=== PATIENT | female | born 1990 ===

== ENCOUNTER 2017-10-20 17:09 | Observation (INO) ==
[2017-10-20] MEDS ORDERED: GLUCAGON 1 MG VIAL IM PRN (17:54)
[2017-10-20] MEDS ORDERED: ACETAMINOPHEN 325 MG TABLET PO PRN (17:54)
[2017-10-20] MEDS ORDERED: ONDANSETRON 4 MG/2 ML VIAL IV PRN (17:54)
[2017-10-20] MEDS ORDERED: DEXTROSE 50% 25 GM/50 ML VIAL IV PRN (17:54)
[2017-10-20] MEDS ORDERED: INFLUENZA VIRUS VACCINE 0.5 ML SYRINGE IM ONE (18:11)
[2017-10-20] MEDS: LACTATED RINGERS 1,000 ML IV SCH (18:27)
[2017-10-20] MEDS ORDERED: cefOXitin 2,000 MG in SYRINGE 1 EACH IV SCH (18:30)
[2017-10-20] MEDS: INSULIN REGULAR 100 UNIT/ML SUBCUT SCH (21:37)
[2017-10-21] MEDS: LACTATED RINGERS 1,000 ML IV SCH ×2 (03:06→20:36)
[2017-10-21 06:00] LABS: Basophils % 0.3 % (0.0-0.8); Eosinophils # 0.3 10*3/uL (0.0-0.87); Eosinophils % 3.5 % (0.00-10.9); Hemoglobin 12.7 GM/DL (12.0-16.0); Immature Granulocytes % 0.1 %; Immature Granulocytes Absolute 0.01 #; Lymphocytes # 1.8 10*3/uL (1.4-4.0); Lymphocytes % 23.9 % (21.3-54.2); Mean Corpuscular HGB Conc 34.3 GM/DL (32-36); Mean Corpuscular Hemoglobin 29 PG (27-34); Mean Corpuscular Volume 84.7 FL (87-102); Mean Platelet Volume 10.2 FL (9.6-12.0); Monocytes # 0.8 10*3/uL (0.11-0.8); Neutrophils # 4.5 10*3/uL (1.4-7.4); Neutrophils % 61.2 % (38.7-73.9); Platelet Count 225 T/CUMM (130-400); Red Blood Count 4.37 MC/CUMM (3.8-5.5); Red Cell Distribution Width 12.6 % (9.3-17.3); White Blood Count 7.4 T/CUMM (4-12)
[2017-10-21 06:27] LABS: Bilirubin,Total 1.4 MG/DL (0.2-1.0); Calcium 8.1 MG/DL (8.5-10.1); Potassium 3.6 MMOL/L (3.5-5.1); Total Protein 5.9 G/DL (6.4-8.3)
[2017-10-21] MEDS ORDERED: LACTATED RINGERS 1,000 ML IV SCH ×2 (08:30→14:30)
[2017-10-21] MEDS ORDERED: PANTOPRAZOLE 40 MG TABLET PO SCH (09:00)
[2017-10-21] MEDS: INSULIN REGULAR 100 UNIT/ML SUBCUT SCH ×4 (11:03→20:38)
[2017-10-21] MEDS ORDERED: TISSUE ADHESIVE 1 EACH APPLICATOR TOP ONE (11:36)
[2017-10-21] MEDS ORDERED: LIDOCAINE 1%/EPI INJ 20 ML VIAL ONE (11:36)
[2017-10-21] MEDS ORDERED: SUGAMMADEX 200 MG/2 ML VIAL IV ONE (14:08)
[2017-10-21] MEDS: HYDROmorphone 2 MG/1 ML VIAL IV PRN ×3 (14:15→14:30)
[2017-10-21] MEDS ORDERED: HYDROmorphone 2 MG/1 ML VIAL ONE (14:16)
[2017-10-21] MEDS ORDERED: ONDANSETRON 4 MG/2 ML VIAL ONE (14:16)
[2017-10-21] MEDS ORDERED: ONDANSETRON 4 MG/2 ML VIAL IV PRN (14:30)
[2017-10-21] MEDS ORDERED: MIDAZOLAM 2 MG/2 ML VIAL ONE (15:41)
[2017-10-21] MEDS ORDERED: DESFLURANE 1 UNIT/15 MINUTE INH ONE (15:41)
[2017-10-21] MEDS ORDERED: PROPOFOL 200 MG/20 ML VIAL IV ONE (15:41)
[2017-10-21] MEDS ORDERED: GLYCOPYRROLATE 0.4 MG/2 ML VIAL ONE (15:42)
[2017-10-21] MEDS ORDERED: ROCURONIUM 100 MG/10 ML VIAL IV ONE (15:42)
[2017-10-21] MEDS ORDERED: NEOSTIGMINE 10 MG/10 ML VIAL ONE (15:42)
[2017-10-21] MEDS ORDERED: SUCCINYLCHOLINE 200 MG/10 ML VIAL ONE (15:42)
[2017-10-21] MEDS ORDERED: ACETAMINOPHEN 1,000 MG/100 ML VIAL IV ONE (15:42)
[2017-10-21] MEDS ORDERED: fentaNYL 100 MCG/2 ML VIAL ONE (15:42)
[2017-10-21] MEDS ORDERED: ENOXAPARIN 40 MG/0.4 ML SYRINGE SUBCUT SCH (21:00)
[2017-10-22] MEDS: LACTATED RINGERS 1,000 ML IV SCH (04:30)
[2017-10-22] MEDS: INSULIN REGULAR 100 UNIT/ML SUBCUT SCH (07:53)
[2017-10-22 09:10] VITALS: BP 115/55
[2017-10-22] MEDS ORDERED: cefOXitin 2,000 MG in SYRINGE 1 EACH IV SCH (15:00)
== END 2017-10-22 10:10 | disposition home or self-care (01) ==
LOC: INTOOBSV 17:27 → N.4E 17:27
PROVIDERS: ADMIT Surgery; ATTEND Surgery
PROC: LAPCHOL (2017-10-21 13:15)